=== PATIENT | female | born 1990 | race Hispanic/Latino ===

== ENCOUNTER 2018-01-08 09:26 | Emergency (ER) | payer OTHER ==
[2018-01-08 09:27] VITALS: BMI 19.8
[2018-01-08 09:58] VITALS: BP 117/82; PULSE 91; RESP 18; TEMP 97; O2SAT 97
--- NOTE | 2018-01-08 12:06 | ED PDOC ---
HPI: Back Time Seen by Provider: 01/08/18 10:00 Chief Complaint (Nursing): Back Pain History Per: Patient History/Exam Limitations: no limitations Onset/Duration Of Symptoms: Worse Since (last night) Current Symptoms Are (Timing): Still Present Previous Symptoms: Prior Injury (right hip injury) Exacerbating Factor(s): Movement, Other (bending) Additional Complaint(s): Delmis Navarrete is a 27 year old female, whose past medical history includes right hip injury, which was treated with physical therapy, who presents to the emergency department complaining of right lower back pain that has become worse since last night. Patient reports 4 days ago having a meeting and sat all day in a metal chair. She notes that same day cleaning her house and lifting a heavy A/C and ever since then any movement or bending causes pain. Patient denies fall, trauma, chest pain, shortness of breath, headache, fever, chills, cough, nausea, vomiting, diarrhea, bowel or bladder incontinence/retention, saddle anesthesia, paresthesias, focal weakness, sensory deficit, gait dysfunction, hematuria or dysuria. No radiation of pain into lower extremities. [facility] Past Medical History Reviewed: Historical Data, Nursing Documentation, Vital Signs Vital Signs: Last Vital Signs Temp 97.0 F L 01/08/18 09:53 Pulse 91 H 01/08/18 09:53 Resp 18 01/08/18 09:53 BP 117/82 01/08/18 09:53 Pulse Ox 97 01/08/18 09:53 - Surgical History Surgical History: Endoscopy - Family History Family History: States: Unknown Family Hx - Home Medications Home Medications: Ambulatory Orders Medication Instructions Recorded Cyclobenzaprine [Cyclobenzaprine 10 mg PO TID PRN #15 tab 01/08/18 HCl] Meloxicam [Mobic] 15 mg PO DAILY PRN #20 tab 01/08/18 - Allergies Allergies/Adverse Reactions: Allergies Allergy/AdvReac Type Severity Reaction Status Date / Time Penicillins Allergy RASH Verified 01/08/18 09:58 Review of Systems Constitutional: Negative for: Fever Cardiovascular: Negative for: Chest Pain Respiratory: Negative for: Shortness of Breath Gastrointestinal: Negative for: Abdominal Pain Genitourinary Female: Negative for: Dysuria Musculoskeletal: Positive for: Back Pain (right lower back pain) Neurological: Negative for: Weakness, Numbness Physical Exam - Reviewed Nursing Documentation Reviewed: Yes Vital Signs Reviewed: Yes - Physical Exam Comments: GENERAL APPEARANCE: Patient is awake, alert, oriented x 3, in mild painful distress. SKIN: Warm, dry; (-) cyanosis. EYES: (-) conjunctival pallor. ENMT: Mucous membranes moist. NECK: (-) tenderness, (-) stiffness, (-) lymphadenopathy. CHEST AND RESPIRATORY: (-) rales, (-) rhonchi, (-) wheezes; breath sounds equal bilaterally. HEART AND CARDIOVASCULAR: (-) irregularity; (-) murmur, (-) gallop. ABDOMEN AND GI: Soft; (-) tenderness; (-) palpable mass. BACK: (+) mild paralumbar tenderness, (+) mild spasm, (-) direct bony tenderness, (-) deformity. Straight leg raising (-) bilaterally. EXTREMITIES: (-) deformity, (-) tenderness, (+) FROM. Distal pulses good bilaterally. NEURO AND PSYCH: Mental status as above. Intact sensation bilaterally; normal strength in extension of the knees, plantar and dorsiflexion of the toes. DTRs symmetric. - ECG O2 Sat by Pulse Oximetry: 97 (room air) Pulse Ox Interpretation: Normal Medical Decision Making Medical Decision Makin01/08/2018 Plan: -- Flexeril and Toradol -- Right Pelvis x-ray -- LS spine x-ray -- Urinalysis -- Reassess and disposition Progress Notes: [place] [facility] [place] Spine and right hip /pelvis: no fracture, no dislocation, as read by PA. Patient advised that official radiology read of XR is still pending and will call the patient if there is any discrepancy within 24 hours. Patient was also advised to rest and avoid heavy lifting. 01/08/2018 12:00 XR results d/w the patient. Dx of low back strain/spasm d/w the patient. Advised rest and no heavy pushing/lifting. Advised to follow up with primary care physician in 1-2 days without fail. Advised to take medication as prescribed. Return to the emergency room at any time for any new or worsening symptoms. Patient states she fully agrees with and understands discharge instructions. States that she agrees with the plan and disposition. Verbalized and repeated discharge instructions and plan. I have given the patient opportunity to ask any additional questions. Scribe Attestation: Documented by Elin Barbour All medical record entries made by the Chelsy were at my direction and personally dictated by me. I have reviewed the chart and agree that the record accurately reflects my personal performance of the history, physical exam, medical decision making, and the department course for this patient. I have also personally directed, reviewed, and agree with the discharge instructions and disposition. Disposition - Clinical Impression Clinical Impression: Low back pain - Patient ED Disposition Is Patient to be Admitted: No Counseled Patient/Family Regarding: Studies Performed, Diagnosis, Need For Followup, Rx Given - Disposition Disposition: Routine/Home Disposition Time: 11:30 Condition: STABLE Additional Instructions: Thank you for letting us take care of you today. You were treated for low back pain. The emergency medical care you received today was directed at your acute symptoms. If you were prescribed any medication, please fill it and take as directed. It may take several days for your symptoms to resolve. Return to the Emergency Department if your symptoms worsen, do not improve, or if you have any other problems. Please contact your doctor in 2 days for re-evaluation and follow up. Bring any paperwork you were given at discharge with you along with any medications you are taking to your follow up visit. Our treatment cannot replace ongoing medical care by a primary care provider (PCP) outside of the emergency department. Thank you for allowing the [facility] team to be part of your care today. Thank you for allowing the [facility] team to be part of your care today. If you had an X-Ray : A Radiologist will review the ED reading if any change in treatment is needed we will contact you. Prescriptions: Cyclobenzaprine [Cyclobenzaprine HCl] 10 mg PO TID PRN #15 tab PRN Reason: Muscle Spasm Meloxicam [Mobic] 15 mg PO DAILY PRN #20 tab PRN Reason: Pain, Moderate (4-7) Instructions: Low Back Pain (DC) Forms: [employer] staff (Turkish), [facility] ED School/Work Excuse
--- NOTE | 2018-01-08 12:33 | RAD ---
PROCEDURE: Right Hip with Pelvis Radiographs. HISTORY: pain COMPARISON: None. FINDINGS: BONES: No acute fracture or destructive bony lesion identified. JOINTS: Bilateral sacroiliac and hip joints appear unremarkable grossly. Pubic symphysis is intact. SOFT TISSUES: Normal. OTHER FINDINGS: None. IMPRESSION: Unremarkable radiographs of right hip.
--- NOTE | 2018-01-08 12:45 | RAD ---
PROCEDURE: Radiographs of the Lumbar Spine. HISTORY: pain COMPARISON: No prior. FINDINGS: BONES: Normal alignment. No listhesis. No fracture. DISC SPACES: Unremarkable. OTHER FINDINGS: None. IMPRESSION: Unremarkable radiographs of the lumbar spine.
== END 2018-01-08 12:37 | disposition home or self-care (01) ==
LOC: H.ER 09:26
DX: M54.5 Low back pain (principal); M25.551 Pain in right hip; Z88.0 Allergy status to penicillin
CPT/HCPCS: 72110; 73502; 81025; 96372; 99283; J1885